=== PATIENT | male | born 1970 | race Caucasian/White ===

== ENCOUNTER 2022-10-20 09:26 | Outpatient (CLI) | payer OTHER, SELFPAY | END 2022-10-20 09:27 | disposition home or self-care (01) | LOC: NFLDREF 10-21 11:18 | PROVIDERS: Visit Provider Physician Assistant Medical | DX: Z00.00 Encounter for general adult medical examination without abnormal findings (principal); Z13.6 Encounter for screening for cardiovascular disorders; Z12.5 Encounter for screening for malignant neoplasm of prostate; Z13.29 Encounter for screening for other suspected endocrine disorder | CPT/HCPCS: 80053; 80061; 84153; 84443 ==

== ENCOUNTER 2024-01-21 10:05 | Outpatient (CLI) | payer OTHER, SELFPAY | END 2024-01-21 10:06 | disposition home or self-care (01) | LOC: NFLDREF 01-23 12:09 | PROVIDERS: Visit Provider Physician Assistant Medical | DX: E78.5 Hyperlipidemia, unspecified (principal); R03.0 Elevated blood-pressure reading, without diagnosis of hypertension; Z12.5 Encounter for screening for malignant neoplasm of prostate | CPT/HCPCS: 80053; 80061; G0103 ==